=== PATIENT | male | born 1990 | race Caucasian/White ===

== ENCOUNTER 2021-12-03 14:27 | Emergency (ER) | payer BC, OTHER ==
[~2021-12-03] VITALS: Ht 180.3 cm; Wt 108.2 kg
[2021-12-03 15:12] VITALS: BP 162/99
[2021-12-03] MEDS ORDERED: DOXY100C77 PO (15:35)
[2021-12-03] MEDS ORDERED: PRED20TA PO (15:35)
[2021-12-03] MEDS ORDERED: ALBU8HFA PO (15:35)
[2021-12-03] MEDS ORDERED: AMOX-117 PO (15:35)
[2021-12-03 15:46] LABS: BASOPHILS # (AUTO) 0.1 X10'3 (0-0.2); BASOPHILS % (AUTO) 0.5 % (0-1); EOSINOPHILS # (AUTO) 0.3 X10'3 (0-0.9); EOSINOPHILS % (AUTO) 2.7 % (0-6); HEMATOCRIT 46.4 % (42.0-52.0); HEMOGLOBIN 15.8 g/dl (14.0-17.9); LYMPHOCYTES # (AUTO) 2.6 X10'3 (1.1-4.8); LYMPHOCYTES % (AUTO) 22.6 % (21-51); MEAN CORPUSCULAR HEMOGLOBIN 31.7 PG (27.0-31.0); MEAN CORPUSCULAR HGB CONC 34.1 g/dL (33.0-36.5); MEAN CORPUSCULAR VOLUME 92.9 FL (78-98); MONOCYTES # (AUTO) 0.6 X10'3 (0-0.9); MONOCYTES % (AUTO) 5.3 % (2-12); NEUTROPHILS # (AUTO) 7.8 X10'3 (1.8-7.7); NEUTROPHILS % (AUTO) 68.9 % (42-75); PLATELET COUNT 208 X10'3 (140-440); RED CELL DISTRIBUTION WIDTH 13.6 % (11.5-14.5); WHITE BLOOD COUNT 11.4 X10'3 (4.5-11.0)
[2021-12-03 16:00] LABS: ALANINE AMINOTRANSFERASE 30 U/L (12-78); ALBUMIN 4.1 G/DL (3.4-5.0); ALKALINE PHOSPHATASE 85 IU/L (46-116); ANION GAP 13 (8-16); ASPARTATE AMINO TRANSFERASE 12 U/L (10-37); BILIRUBIN,TOTAL 0.4 MG/DL (0.1-1.0); BLOOD UREA NITROGEN 19 MG/DL (7-18); BUN/CREATININE RATIO 18.3 (5.4-32.0); CALCIUM 9.4 MG/DL (8.5-10.1); CHLORIDE 105 MMOL/L (99-107); CREATININE 1.04 MG/DL (0.60-1.10); GLUCOSE 95 MG/DL (70-104); POTASSIUM 3.8 MMOL/L (3.5-5.1); SODIUM 142 MMOL/L (135-145); TOTAL PROTEIN 8.2 G/DL (6.4-8.2); eGFR 82 ML/MIN
== END 2021-12-03 16:27 | disposition home or self-care (01) ==
LOC: ER 14:27
DX: J18.9 Pneumonia, unspecified organism (principal); Z20.822 Contact with and (suspected) exposure to COVID-19; Z87.01 Personal history of pneumonia (recurrent)
CPT/HCPCS: 36415; 71045; 80053; 85025; 87635; 99284; C9803

== ENCOUNTER 2021-12-07 01:08 | Emergency (ER) | payer OTHER ==
[~2021-12-07] VITALS: Ht 180.3 cm; Wt 112.3 kg
[~2021-12-07 01:08] MED LIST: ALBU8HFA PO; AMOX-117 PO; DOXY100C77 PO; PRED20TA PO
[2021-12-07] MEDS ORDERED: acetaminophen 325mg tablet PO ONE (01:40)
[2021-12-07 02:16] LABS: BASOPHILS % (AUTO) 0.4 % (0-1); EOSINOPHILS # (AUTO) 0.1 X10'3 (0-0.9); EOSINOPHILS % (AUTO) 1.3 % (0-6); HEMATOCRIT 41.7 % (42.0-52.0); HEMOGLOBIN 14.6 g/dl (14.0-17.9); LYMPHOCYTES # (AUTO) 0.5 X10'3 (1.1-4.8); LYMPHOCYTES % (AUTO) 5.7 % (21-51); MEAN CORPUSCULAR HEMOGLOBIN 32.5 PG (27.0-31.0); MEAN CORPUSCULAR VOLUME 92.7 FL (78-98); MEAN PLATELET VOLUME 8.4 FL (7.4-10.4); MONOCYTES # (AUTO) 0.8 X10'3 (0-0.9); MONOCYTES % (AUTO) 9.1 % (2-12); NEUTROPHILS # (AUTO) 7.3 X10'3 (1.8-7.7); NEUTROPHILS % (AUTO) 83.5 % (42-75); PLATELET COUNT 160 X10'3 (140-440); RED CELL DISTRIBUTION WIDTH 13.2 % (11.5-14.5); WHITE BLOOD COUNT 8.8 X10'3 (4.5-11.0)
[2021-12-07 02:33] LABS: ALANINE AMINOTRANSFERASE 105 U/L (12-78); ALBUMIN 3.8 G/DL (3.4-5.0); ALBUMIN/GLOBULIN RATIO 1.2 (1.1-1.5); ALKALINE PHOSPHATASE 88 IU/L (46-116); ANION GAP 14 (8-16); ASPARTATE AMINO TRANSFERASE 44 U/L (10-37); BILIRUBIN,TOTAL 0.2 MG/DL (0.1-1.0); BLOOD UREA NITROGEN 22 MG/DL (7-18); CALCIUM 8.7 MG/DL (8.5-10.1); CHLORIDE 103 MMOL/L (99-107); CREATININE 1.22 MG/DL (0.60-1.10); GLUCOSE 100 MG/DL (70-104); SODIUM 136 MMOL/L (135-145); TOTAL CARBON DIOXIDE 19.4 MMOL/L (24-32); eGFR 68 ML/MIN
[2021-12-07 02:37] LABS: POTASSIUM 3.4 MMOL/L (3.5-5.1)
[2021-12-07 04:10] LABS: CLARITY,URINE CLEAR (Clear); COLOR,URINE YELLOW (Yellow); GLUCOSE, URINE NEGATIVE (Neg); KETONES,URINE NEGATIVE (Neg); LEUKOCYTE ESTERASE ,URINE NEGATIVE (Neg); NITRITES, URINE NEGATIVE (Neg); OCCULT BLOOD,URINE NEGATIVE (Neg); PROTEIN,URINE NEGATIVE (Neg); UROBILINOGEN,URINE 0.2 E.U/dL (0.2-1.0)
[2021-12-07] MEDS ORDERED: ketorolac trometh. 30mg/ml inj. IV ONE (04:10)
[2021-12-07] MEDS ORDERED: normal saline 1000ML IV soln IVB ONE (04:10)
[2021-12-07] MEDS ORDERED: LORazepam 2 mg/ml vial IV ONE (04:10)
[2021-12-07 04:12] LABS: UA COLLECTION TYPE CLN CATCH MIDSTREAM
[2021-12-07] MEDS ORDERED: dexamethasone sod phosphate 10mg/ml inj IV STA (05:16)
[2021-12-07 06:10] VITALS: BP 110/81
== END 2021-12-07 06:11 | disposition home or self-care (01) ==
LOC: ER 01:08
DX: U07.1 COVID-19 (principal); J12.82 Pneumonia due to coronavirus disease 2019; M54.50 Low back pain, unspecified; Z87.01 Personal history of pneumonia (recurrent); Z79.2 Long term (current) use of antibiotics; Z79.899 Other long term (current) drug therapy
CPT/HCPCS: 36415; 71045; 80053; 81003; 83605; 84145; 85025; 87040; 87502; 87503; 87635; 96361; 96374; 96375; 99285; C9803; J1100; J1885; J2060; J7030

== ENCOUNTER 2024-03-17 17:21 | Emergency (ER) | payer OTHER ==
[~2024-03-17] VITALS: Ht 180.3 cm; Wt 114.0 kg
[2024-03-17 17:27] VITALS: BP 147/90; PULSE 85; RESP 18; O2SAT 98
[2024-03-17] MEDS: CefTRIAXone 1000mg IM Kit (w/lidocaine diluent) IM ONE (19:25)
[2024-03-17 19:27] VITALS: TEMP 98.5
[2024-03-17] MEDS ORDERED: AZIT250T83 PO (19:43)
[2024-03-17] MEDS ORDERED: ALBU8HFA INH (19:43)
[2024-03-17] MEDS ORDERED: BENZ-38 PO (19:43)
== END 2024-03-17 19:54 | disposition home or self-care (01) ==
LOC: ER 17:22
DX: J18.9 Pneumonia, unspecified organism (principal)
CPT/HCPCS: 71045; 96372; 99283; J0696